=== PATIENT | female | born 1980 | race Caucasian/White ===

== ENCOUNTER 2017-02-10 15:30 | Emergency (ER) | payer MEDICAID ==
[~2017-02-10] VITALS: Ht 162.6 cm; Wt 76.5 kg
[2017-02-10 15:33] VITALS: Ht 162.6 cm; Wt 76.5 kg
[2017-02-10] MEDS ORDERED: CEFTRIAXONE 1 GM INJ IM STA (16:25)
[2017-02-10] MEDS ORDERED: KETOROLAC 60 MG INJ IM STA (16:25)
--- NOTE | 2017-02-10 16:34 | ERD ---
ER Documentation Chief Complaint Date/Time DATE: 02/10/17 TIME: 16:31 Chief Complaint painful urination and lower back pain x 2 days HPI 36 year old female presents to the ED complaining of painful urination, hesitancy, moderate suprapubic pain, left lower back pain for past two days. Patient denies fevers, hematuria, nausea, vomiting, diarrhea. Patient took Tylenol earlier today ROS All systems reviewed and are negative except as per history of present illness. Medications Home Meds Active Scripts Cephalexin* (Keflex*) 500 Mg Capsule, 500 MG PO TID for 10 Days, CAP Prov:JOSS PRITCHETT PA-C 02/10/17 Allergies Allergies: Coded Allergies: No Known Allergy (Unverified , 02/10/17) Physical Exam Vitals Vital Signs Date Time Temp Pulse Resp B/P Pulse Ox O2 Delivery O2 Flow Rate FiO2 02/10/17 15:33 99.2 92 18 164/92 99 Physical Exam General: well-developed/well-nourished, in no apparent distress, non-toxic appearing HENT: NC/AT Eyes: Conjunctiva normal Neck: Supple Pulm: CTA bilaterally, normal breathing CV: Normal S1S2 GI: Soft, non-distended, normal bowel sounds, TTP on suprapubic region Back: No midline tenderness, no masses, No CVAT Ext: No clubbing, cyanosis, or edema Neuro: Alert and orientated Skin: intact, normal turgor Psych: Normal mood and mentation Results 24 hrs Laboratory Tests Test 02/10/17 17:00 Bedside Urine pH (LAB) 8.5 Bedside Urine Protein (LAB) 1+ Bedside Urine Glucose (UA) Negative Bedside Urine Ketones (LAB) Negative Bedside Urine Blood Negative Bedside Urine Nitrite (LAB) Negative Bedside Urine Leukocyte Esterase (L 3+ Current Medications Medications (Trade) Dose Ordered Sig/Onri Route PRN Reason Start Time Stop Time Status Last Admin Dose Admin Ketorolac Tromethamine (Toradol) 60 mg ONCE STAT IM 02/10/17 16:25 02/10/17 16:26 DC 02/10/17 17:08 Ceftriaxone Sodium (Rocephin) 1 gm ONCE STAT IM 02/10/17 16:25 02/10/17 16:26 DC 02/10/17 17:08 Procedures/MDM 36-year-old female presents to the ER with symptoms most consistent with urinary tract infection. Low suspicion for pyelonephritis, nephrolithiasis, ovarian torsion due to physical examination and diagnostic testing. UA showed evidence of infection. Patient was ceftriaxone in the ED. Patient hemodynamically stable for discharge. Prescriptions Keflex have been given to take as directed. Strict precautions were given to return to the ER if not improving as expected or for any worsening signs and symptoms Departure Diagnosis: Primary Impression: UTI (urinary tract infection) Condition: Stable JOSS PRITCHETT PA-C Feb 10, 2017 16:34
[2017-02-10 16:52] LABS: URINE BLOOD (Dip) POC Negative (NEGATIVE)
[2017-02-10] MEDS ORDERED: CEPH-443 PO (17:24)
== END 2017-02-10 17:35 | disposition home or self-care (01) ==
LOC: FTE 15:30
DX: N39.0 Urinary tract infection, site not specified (principal)
CPT/HCPCS: 81003; 96372; J0696; J1885; Z7502